=== PATIENT | male | born 1945 | race Caucasian/White ===

== ENCOUNTER → 2017-01-15 | Outpatient (CLI) | payer MEDICARE, BC ==
[2017-01-15 08:10] LABS: HEMATOCRIT 38.1 % (37.9-51.0); HEMOGLOBIN 12.4 g/dL (13.5-17.0); HGB HCT DIFFERENCE -0.9; MEAN CORPUSCULAR HEMOGLOBIN 27.9 pg (27.0-33.4); MEAN CORPUSCULAR HGB CONC 32.6 g/dL (32.0-36.0); MEAN CORPUSCULAR VOLUME 85 fl (80-97); RED BLOOD COUNT 4.46 10^6/uL (4.35-5.55); RED CELL DISTRIBUTION WIDTH 14.1 % (11.5-14.0); WHITE BLOOD COUNT 7.8 10^3/uL (4.0-10.5)
[2017-01-15 08:21] LABS: APPEARANCE,URINE CLEAR; BILIRUBIN,URINE NEGATIVE (NEGATIVE); GLUCOSE, URINE NEGATIVE (NEGATIVE); KETONES,URINE NEGATIVE (NEGATIVE); LEUKOCYTE ESTERASE,URINE NEGATIVE (NEGATIVE); NITRITE,URINE NEGATIVE (NEGATIVE); PROTEIN,URINE 100 mg/dL (NEGATIVE); URINE SPECIFIC GRAVITY 1.009; UROBILINOGEN,URINE NEGATIVE mg/dL (<2.0)
[2017-01-15 08:35] LABS: ANION GAP 11 (5-19); BLOOD UREA NITROGEN 20 mg/dL (7-20); CALCIUM 9.1 mg/dL (8.4-10.2); CARBON DIOXIDE 30 mmol/L (22-30); CHLORIDE 102 mmol/L (98-107); CREATININE RESULT 1.54 mg/dL (0.52-1.25); GLUCOSE 114 mg/dL (75-110); MAGNESIUM 1.8 mg/dL (1.6-2.3); SODIUM 143.2 mmol/L (137-145)
[2017-01-15 09:08] LABS: URINE CREATININE 92.1 mg/dL (22-328); URINE PROTEIN 115.9 mg/dL (<12)
== END ==
LOC: OD 07:08
PROVIDERS: ATTEND Internal Medicine Nephrology
DX: I12.9 Hypertensive chronic kidney disease with stage 1 through stage 4 chronic kidney disease, or unspecified chronic kidney disease (principal); N18.3 Chronic kidney disease, stage 3 (moderate); E11.9 Type 2 diabetes mellitus without complications; R80.9 Proteinuria, unspecified; D64.9 Anemia, unspecified
CPT/HCPCS: 36415; 80048; 81001; 82570; 83735; 84156; 85027

== ENCOUNTER → 2017-07-26 | Outpatient (CLI) | payer MEDICARE, BC ==
[2017-07-26 12:53] LABS: HEMATOCRIT 35.2 % (37.9-51.0); HEMOGLOBIN 11.9 g/dL (13.5-17.0); MEAN CORPUSCULAR HEMOGLOBIN 28.1 pg (27.0-33.4); MEAN CORPUSCULAR HGB CONC 33.8 g/dL (32.0-36.0); MEAN CORPUSCULAR VOLUME 83 fl (80-97); PLATELET COUNT 294 10^3/uL (150-450); RED BLOOD COUNT 4.23 10^6/uL (4.35-5.55); RED CELL DISTRIBUTION WIDTH 13.8 % (11.5-14.0); WHITE BLOOD COUNT 7.6 10^3/uL (4.0-10.5)
[2017-07-26 13:00] LABS: APPEARANCE,URINE CLEAR; BILIRUBIN,URINE NEGATIVE (NEGATIVE); COLOR,URINE YELLOW; GLUCOSE, URINE NEGATIVE (NEGATIVE); KETONES,URINE NEGATIVE (NEGATIVE); LEUKOCYTE ESTERASE,URINE NEGATIVE (NEGATIVE); NITRITE,URINE NEGATIVE (NEGATIVE); PROTEIN,URINE 100 mg/dL (NEGATIVE); URINE SPECIFIC GRAVITY 1.018; UROBILINOGEN,URINE NEGATIVE mg/dL (<2.0)
[2017-07-26 13:17] LABS: ANION GAP 13 (5-19); BLOOD UREA NITROGEN 16 mg/dL (7-20); CALCIUM 9.2 mg/dL (8.4-10.2); CARBON DIOXIDE 27 mmol/L (22-30); CHLORIDE 104 mmol/L (98-107); GLUCOSE 132 mg/dL (75-110); POTASSIUM 3.7 mmol/L (3.6-5.0); SODIUM 144.1 mmol/L (137-145)
[2017-07-26 13:25] LABS: URINE CREATININE 197.8 mg/dL (22-328)
[2017-07-26 13:38] LABS: UR PRO/CREAT RATIO RESULT 1.6 mg/mg (0.0-0.2); URINE PROTEIN 312.4 mg/dL (<12)
== END ==
LOC: OD 11:33
PROVIDERS: ATTEND Internal Medicine Nephrology
DX: I12.9 Hypertensive chronic kidney disease with stage 1 through stage 4 chronic kidney disease, or unspecified chronic kidney disease (principal); N18.3 Chronic kidney disease, stage 3 (moderate); E11.9 Type 2 diabetes mellitus without complications; R80.9 Proteinuria, unspecified
CPT/HCPCS: 36415; 80048; 81001; 82570; 84156; 85027

== ENCOUNTER → 2017-12-14 | Outpatient (CLI) | payer MEDICARE, BC ==
[2017-12-14 09:02] LABS: HEMATOCRIT 36.1 % (37.9-51.0); HEMOGLOBIN 12.3 g/dL (13.5-17.0); MEAN CORPUSCULAR HEMOGLOBIN 28.5 pg (27.0-33.4); MEAN CORPUSCULAR VOLUME 84 fl (80-97); PLATELET COUNT 288 10^3/uL (150-450); RED BLOOD COUNT 4.31 10^6/uL (4.35-5.55); RED CELL DISTRIBUTION WIDTH 14.4 % (11.5-14.0); WHITE BLOOD COUNT 8.9 10^3/uL (4.0-10.5)
[2017-12-14 09:16] LABS: ANION GAP 11 (5-19); BLOOD UREA NITROGEN 22 mg/dL (7-20); CALCIUM 9.4 mg/dL (8.4-10.2); CARBON DIOXIDE 30 mmol/L (22-30); CHLORIDE 103 mmol/L (98-107); GLUCOSE 217 mg/dL (75-110); SODIUM 144.1 mmol/L (137-145)
[2017-12-14 09:27] LABS: APPEARANCE,URINE CLEAR; BILIRUBIN,URINE NEGATIVE (NEGATIVE); COLOR,URINE YELLOW; GLUCOSE, URINE 150 mg/dL (NEGATIVE); KETONES,URINE NEGATIVE (NEGATIVE); LEUKOCYTE ESTERASE,URINE NEGATIVE (NEGATIVE); NITRITE,URINE NEGATIVE (NEGATIVE); PROTEIN,URINE 30 mg/dL (NEGATIVE); URINE SPECIFIC GRAVITY 1.011; UROBILINOGEN,URINE NEGATIVE mg/dL (<2.0)
[2017-12-14 09:58] LABS: UR PRO/CREAT RATIO RESULT 0.8 mg/mg (0.0-0.2); URINE CREATININE 59.6 mg/dL (22-328)
== END ==
LOC: OD 07:46
PROVIDERS: ATTEND Internal Medicine Nephrology
DX: I12.9 Hypertensive chronic kidney disease with stage 1 through stage 4 chronic kidney disease, or unspecified chronic kidney disease (principal); N18.3 Chronic kidney disease, stage 3 (moderate); E11.9 Type 2 diabetes mellitus without complications; R80.9 Proteinuria, unspecified
CPT/HCPCS: 36415; 80048; 81001; 82570; 84156; 85027

== ENCOUNTER → 2018-04-22 | Outpatient (CLI) | payer MEDICARE, BC ==
[2018-04-22 07:38] LABS: HEMATOCRIT 39.9 % (37.9-51.0); HEMOGLOBIN 13.6 g/dL (13.5-17.0); MEAN CORPUSCULAR HEMOGLOBIN 27.9 pg (27.0-33.4); MEAN CORPUSCULAR VOLUME 82 fl (80-97); PLATELET COUNT 350 10^3/uL (150-450); RED BLOOD COUNT 4.86 10^6/uL (4.35-5.55); WHITE BLOOD COUNT 7.1 10^3/uL (4.0-10.5)
[2018-04-22 07:40] LABS: APPEARANCE,URINE CLEAR; BILIRUBIN,URINE NEGATIVE (NEGATIVE); COLOR,URINE YELLOW; GLUCOSE, URINE NEGATIVE (NEGATIVE); KETONES,URINE NEGATIVE (NEGATIVE); LEUKOCYTE ESTERASE,URINE NEGATIVE (NEGATIVE); NITRITE,URINE NEGATIVE (NEGATIVE); PROTEIN,URINE >=500 mg/dL (NEGATIVE); URINE SPECIFIC GRAVITY 1.022; UROBILINOGEN,URINE NEGATIVE mg/dL (<2.0)
[2018-04-22 07:56] LABS: ANION GAP 10 (5-19); BLOOD UREA NITROGEN 18 mg/dL (7-20); CALCIUM 9.6 mg/dL (8.4-10.2); CARBON DIOXIDE 30 mmol/L (22-30); CHLORIDE 103 mmol/L (98-107); GLUCOSE 130 mg/dL (75-110); PHOSPHORUS 3.7 mg/dL (2.5-4.5); POTASSIUM 4.7 mmol/L (3.6-5.0)
== END ==
LOC: OD 07:06
PROVIDERS: ATTEND Physician Assistant Medical
DX: I12.9 Hypertensive chronic kidney disease with stage 1 through stage 4 chronic kidney disease, or unspecified chronic kidney disease (principal); E11.22 Type 2 diabetes mellitus with diabetic chronic kidney disease; N18.3 Chronic kidney disease, stage 3 (moderate); R80.9 Proteinuria, unspecified; D64.9 Anemia, unspecified; R60.9 Edema, unspecified
CPT/HCPCS: 36415; 80048; 81001; 83970; 84100; 85027

== ENCOUNTER → 2018-10-21 | Outpatient (CLI) | payer MEDICARE, BC ==
[2018-10-21 07:50] LABS: HEMATOCRIT 39.7 % (37.9-51.0); HEMOGLOBIN 13.6 g/dL (13.5-17.0); MEAN CORPUSCULAR HEMOGLOBIN 28.5 pg (27.0-33.4); MEAN CORPUSCULAR HGB CONC 34.3 g/dL (32.0-36.0); MEAN CORPUSCULAR VOLUME 83 fl (80-97); PLATELET COUNT 294 10^3/uL (150-450); RED BLOOD COUNT 4.78 10^6/uL (4.35-5.55); RED CELL DISTRIBUTION WIDTH 14.4 % (11.5-14.0); WHITE BLOOD COUNT 6.8 10^3/uL (4.0-10.5)
[2018-10-21 08:05] LABS: APPEARANCE,URINE CLEAR; BILIRUBIN,URINE NEGATIVE (NEGATIVE); COLOR,URINE YELLOW; GLUCOSE, URINE NEGATIVE (NEGATIVE); KETONES,URINE NEGATIVE (NEGATIVE); LEUKOCYTE ESTERASE,URINE NEGATIVE (NEGATIVE); NITRITE,URINE NEGATIVE (NEGATIVE); PROTEIN,URINE 100 mg/dL (NEGATIVE); URINE SPECIFIC GRAVITY 1.023
[2018-10-21 08:12] LABS: ANION GAP 10 (5-19); BLOOD UREA NITROGEN 26 mg/dL (7-20); CALCIUM 8.7 mg/dL (8.4-10.2); CARBON DIOXIDE 27 mmol/L (22-30); CHLORIDE 104 mmol/L (98-107); GLUCOSE 166 mg/dL (75-110); PHOSPHORUS 3.8 mg/dL (2.5-4.5); SODIUM 141.2 mmol/L (137-145)
== END ==
LOC: OD 07:04
PROVIDERS: ATTEND Physician Assistant Medical
DX: N18.3 Chronic kidney disease, stage 3 (moderate) (principal); I12.9 Hypertensive chronic kidney disease with stage 1 through stage 4 chronic kidney disease, or unspecified chronic kidney disease; E11.9 Type 2 diabetes mellitus without complications; R60.9 Edema, unspecified
CPT/HCPCS: 36415; 80048; 81001; 83970; 84100; 85027

== ENCOUNTER → 2019-02-03 | Outpatient (CLI) | payer MEDICARE, BC ==
[2019-02-03 10:23] LABS: HEMOGLOBIN 11.3 g/dL (13.5-17.0); MEAN CORPUSCULAR HEMOGLOBIN 27.6 pg (27.0-33.4); MEAN CORPUSCULAR HGB CONC 33.2 g/dL (32.0-36.0); MEAN CORPUSCULAR VOLUME 83 fl (80-97); PLATELET COUNT 380 10^3/uL (150-450)
[2019-02-03 10:51] LABS: ANION GAP 8 (5-19); BLOOD UREA NITROGEN 32 mg/dL (7-20); CALCIUM 9.3 mg/dL (8.4-10.2); CARBON DIOXIDE 28 mmol/L (22-30); CHLORIDE 105 mmol/L (98-107); GLUCOSE 108 mg/dL (75-110); PHOSPHORUS 4.9 mg/dL (2.5-4.5); POTASSIUM 4.3 mmol/L (3.6-5.0); SODIUM 141.3 mmol/L (137-145)
[2019-02-03 11:15] LABS: APPEARANCE,URINE CLEAR; BILIRUBIN,URINE NEGATIVE (NEGATIVE); COLOR,URINE YELLOW; GLUCOSE, URINE NEGATIVE (NEGATIVE); KETONES,URINE NEGATIVE (NEGATIVE); LEUKOCYTE ESTERASE,URINE NEGATIVE (NEGATIVE); NITRITE,URINE NEGATIVE (NEGATIVE); PROTEIN,URINE 30 mg/dL (NEGATIVE); URINE SPECIFIC GRAVITY 1.012; UROBILINOGEN,URINE NEGATIVE mg/dL (<2.0)
[2019-02-03 11:30] LABS: UR PRO/CREAT RATIO RESULT 0.4 mg/mg (0.0-0.2); URINE CREATININE 99.3 mg/dL (22-328); URINE PROTEIN 39.1 mg/dL (<12)
== END ==
LOC: OD 09:54
PROVIDERS: ATTEND Physician Assistant Medical
DX: E11.22 Type 2 diabetes mellitus with diabetic chronic kidney disease (principal); I12.9 Hypertensive chronic kidney disease with stage 1 through stage 4 chronic kidney disease, or unspecified chronic kidney disease; N18.3 Chronic kidney disease, stage 3 (moderate); N25.0 Renal osteodystrophy; R60.9 Edema, unspecified
CPT/HCPCS: 36415; 80048; 81001; 82570; 83970; 84100; 84156; 85027

== ENCOUNTER → 2019-07-31 | Outpatient (CLI) | payer MEDICARE, BC ==
[2019-07-31 11:12] LABS: ABSOLUTE EOSINOPHILS # (AUTO) 0.1 10^3/uL (0.0-0.6); ABSOLUTE LYMPHOCYTES (AUTO) 2.3 10^3/uL (0.5-4.7); ABSOLUTE MONOCYTES (AUTO) 0.8 10^3/uL (0.1-1.4); ABSOLUTE NEUT (AUTO) 5.5 10^3/uL (1.7-8.2); BASOPHILS % (AUTO) 0.4 % (0-2); EOSINOPHILS % (AUTO) 1.7 % (0-6); HEMATOCRIT 38.8 % (37.9-51.0); MEAN CORPUSCULAR HEMOGLOBIN 27.7 pg (27.0-33.4); MEAN CORPUSCULAR HGB CONC 33.4 g/dL (32.0-36.0); MEAN CORPUSCULAR VOLUME 83 fl (80-97); MONOCYTES % (AUTO) 9.4 % (3-13); PLATELET COUNT 294 10^3/uL (150-450); RED BLOOD COUNT 4.69 10^6/uL (4.35-5.55); RED CELL DISTRIBUTION WIDTH 15.1 % (11.5-14.0); SEGMENTED NEUTROPHILS % (AUTO) 62.5 % (42-78); TOTAL CELLS COUNTED % (AUTO) 100 %; WHITE BLOOD COUNT 8.8 10^3/uL (4.0-10.5)
[2019-07-31 11:29] LABS: APPEARANCE,URINE CLEAR; BILIRUBIN,URINE NEGATIVE (NEGATIVE); COLOR,URINE YELLOW; GLUCOSE, URINE NEGATIVE (NEGATIVE); KETONES,URINE NEGATIVE (NEGATIVE); LEUKOCYTE ESTERASE,URINE NEGATIVE (NEGATIVE); NITRITE,URINE NEGATIVE (NEGATIVE); PROTEIN,URINE 30 mg/dL (NEGATIVE); UROBILINOGEN,URINE NEGATIVE mg/dL (<2.0)
[2019-07-31 11:35] LABS: ANION GAP 8 (5-19); BLOOD UREA NITROGEN 26 mg/dL (7-20); CARBON DIOXIDE 30 mmol/L (22-30); CHLORIDE 102 mmol/L (98-107); GLUCOSE 198 mg/dL (75-110); PHOSPHORUS 3.6 mg/dL (2.5-4.5); POTASSIUM 4.8 mmol/L (3.6-5.0)
[2019-07-31 11:45] LABS: UR PRO/CREAT RATIO RESULT 0.3 mg/mg (0.0-0.2); URINE CREATININE 112.7 mg/dL (22-328); URINE PROTEIN 38.8 mg/dL (<12)
== END ==
LOC: OD 10:36
PROVIDERS: ATTEND Physician Assistant Medical
DX: I12.9 Hypertensive chronic kidney disease with stage 1 through stage 4 chronic kidney disease, or unspecified chronic kidney disease (principal); N18.3 Chronic kidney disease, stage 3 (moderate); E11.22 Type 2 diabetes mellitus with diabetic chronic kidney disease; N25.0 Renal osteodystrophy; D63.1 Anemia in chronic kidney disease; R60.9 Edema, unspecified
CPT/HCPCS: 36415; 80048; 81001; 82570; 83970; 84100; 84156; 85025

== ENCOUNTER 2020-03-19 05:47 | Day surgery (SDC) | payer OTHER, MEDICARE, BC ==
[2020-03-15 09:36] LABS: HEMATOCRIT 37.7 % (37.9-51.0); HEMOGLOBIN 12.8 g/dL (13.5-17.0); MEAN CORPUSCULAR VOLUME 86 fl (80-97); PLATELET COUNT 330 10^3/uL (150-450); RED BLOOD COUNT 4.41 10^6/uL (4.35-5.55); RED CELL DISTRIBUTION WIDTH 14.2 % (11.5-14.0)
[2020-03-15 09:39] LABS: APPEARANCE,URINE CLEAR; BILIRUBIN,URINE NEGATIVE (NEGATIVE); COLOR,URINE YELLOW; GLUCOSE, URINE 50 mg/dL (NEGATIVE); KETONES,URINE NEGATIVE (NEGATIVE); LEUKOCYTE ESTERASE,URINE NEGATIVE (NEGATIVE); NITRITE,URINE NEGATIVE (NEGATIVE); PROTEIN,URINE 100 mg/dL (NEGATIVE); URINE SPECIFIC GRAVITY 1.015; UROBILINOGEN,URINE NEGATIVE mg/dL (<2.0)
[2020-03-15 10:02] LABS: ANION GAP 11 (5-19); BLOOD UREA NITROGEN 45 mg/dL (7-20); CALCIUM 8.6 mg/dL (8.4-10.2); CARBON DIOXIDE 24 mmol/L (22-30); CHLORIDE 107 mmol/L (98-107); GLUCOSE 184 mg/dL (75-110); POTASSIUM 4.8 mmol/L (3.6-5.0)
[2020-03-15 10:10] LABS: ADD MANUAL MICROSCOPIC YES; RBC,URINE NONE SEEN /HPF; WBC,URINE NONE SEEN /HPF
--- NOTE | 2020-03-15 11:11 | RADIOLOGY REPORT (SQ) ---
EXAM DESCRIPTION: CHEST PA/LATERAL IMAGES COMPLETED DATE/TIME: 03/15/2020 9:08 am REASON FOR STUDY: PRE-OP COMPARISON: PA and lateral views of the chest from 02/08/2014. EXAM PARAMETERS: NUMBER OF VIEWS: Two views. TECHNIQUE: PA and lateral views of the chest were obtained. RADIATION DOSE: NA. LIMITATIONS: None. FINDINGS: LUNGS AND PLEURA: No consolidation, pleural effusion or pneumothorax. MEDIASTINUM AND HILAR STRUCTURES: No mediastinal or hilar contour abnormality. HEART AND VASCULAR STRUCTURES: The cardiac silhouette is mildly enlarged. The pulmonary vasculature is within normal limits. BONES: Findings of DISH in the thoracic spine. HARDWARE: None in the chest. OTHER: No other finding. IMPRESSION: Mild cardiomegaly without a superimposed acute cardiopulmonary process. TECHNICAL DOCUMENTATION: JOB ID: [id number] 2010 [employer]- All Rights Reserved Reading location - IP/workstation name: [email or web address]
--- NOTE | 2020-03-15 11:19 | EKG REPORT ---
SEVERITY:- ABNORMAL ECG - SINUS RHYTHM NONSPECIFIC T ABNORMALITIES, INFERIOR LEADS : Confirmed by: Lakia Morgan MD 15-Mar-2020 11:19:13
[~2020-03-19 05:47] MED LIST: CEFAZOLIN 2 GM/D5W RTU 2 GM/50 ML RTUPB IV ONE; CEFAZOLIN 2 GM/D5W RTU 2 GM/50 ML RTUPB IV PRN; LACTATED RINGERS 1000 ML IV PRN; LIDOCAINE 0.5% INJ-PF (5 MG/ML) 50 ML SDV SUBCUT PRN
[2020-03-19] MEDS ORDERED: MIDAZOLAM 2 MG/2 ML INJ ONE (07:06)
[2020-03-19] MEDS ORDERED: ONDANSETRON HCL INJ/PF 4 MG/2 ML SDV ONE (07:06)
[2020-03-19] MEDS ORDERED: FENTANYL CITRATE INJ/PF 100 MCG/2 ML AMPUL ONE (07:06)
[2020-03-19] MEDS ORDERED: PROPOFOL INJ 200 MG/20 ML VIAL IV ONE (07:07)
[2020-03-19] MEDS ORDERED: BUPIVACAINE HCL 0.5 % INJ/PF 30 ML SDV ONE (07:36)
[2020-03-19] MEDS ORDERED: LIDOCAINE 1% INJ-PF (10 MG/ML) 30 ML SDV ONE (07:36)
[2020-03-19] MEDS ORDERED: DIPHENHYDRAMINE HCL 50 MG/ML VIAL IV PRN (08:15)
[2020-03-19] MEDS ORDERED: FENTANYL CITRATE INJ/PF 100 MCG/2 ML AMPUL IV PRN ×3 (08:15)
[2020-03-19] MEDS ORDERED: PROMETHAZINE HCL INJ 25 MG/1 ML VIAL IV PRN ×2 (08:15)
[2020-03-19] MEDS ORDERED: MEPERIDINE HCL/PF INJ 25 MG/1 ML DISP.SYRIN IV PRN (08:15)
[2020-03-19] MEDS ORDERED: HYDROCODONE/ACETAMINOPHEN 5-325 MG TABLET PO PRN (08:37)
[2020-03-19] MEDS ORDERED: ONDANSETRON HCL INJ/PF 4 MG/2 ML SDV IV PRN (08:37)
--- NOTE | 2020-03-19 08:37 | Discharge Summary ---
Discharge Summary (SDC) - Discharge Final Diagnosis: Right Carpal Tunnel Syndrome Date of Surgery: 03/19/20 Discharge Date: 03/19/20 Condition: Good Treatment or Instructions: Schedule Follow Up w/ Dr. Singh Brady @ [facility] to be seen in 10-14 days or as scheduled [place]: [place]: [place]: May remove dressing on postop day #3, keep incision covered and dry. Ice and elevate May begin finger range of motion attempting to make full fist. Stool softener of choice when on pain medication. USE OF [id number] IBUPROFEN: Ibuprofen (Advil, Nuprin, Medipren, Motrin IB) is a medication for fever and pain control. In addition, it has anti- inflammatory effects which may be beneficial, especially in the treatment of injuries. It's best to take ibuprofen with food. Persons with ulcer disease or allergy to aspirin should notify their physician of this before taking ibuprofen. Ibuprofen can be given every four to six hours, for a total of four doses daily. Age Pain or fever dose Antiinflammatory dose 6-8 yr 200 mg (1 tab) 200 mg (1 tab) 9-11 yr 200 mg (1 tab) 200-400 mg (1-2 tab) 11-14 yr 200-400 mg (1-2 tab) 400 mg (2 tab) 15-adult 400 mg (2 tab) 600 mg (3 tab) ORAL NARCOTIC MEDICATION: You have been given a prescription for pain control. This medication is a narcotic. It's best taken with food, as nausea can result if taken on an empty stomach. Don't operate machinery or drive within six hours of taking this medication. Do not combine this medicine with alcohol, or with any medication which can cause sedation (such as cold tablets or sleeping pills) unless you get permission from the physician. Narcotics tend to cause constipation. If possible, drink plenty of fluids and eat a diet high in fiber and fruits. Please be aware that prescription narcotics also have the potential for abuse. People become addicted to these medications because of the general sense of wellbeing that they induce. This feeling along with a significant reduction in tension, anxiety, and aggression provides a stimulating seductive quality to these drugs. Once your pain is under control, we encourage you to discard your unused narcotics. Prescriptions: Hydrocodone/Acetaminophen [[place] 5-325 mg Tablet] 1 tab PO Q6 PRN #10 tablet PRN Reason: Referrals: AVANI BOURNE MD [Primary Care Provider] - Discharge Diet: As Tolerated Respiratory Treatments at Home: Deep Breathing/Coughing Discharge Activity: No Lifting Over 10 Pounds, No Lifting/Push/Pulling Report the Following to Your Physician Immediately: Fever over 101 Degrees, Unusual Bleeding, Redness, Swelling, Warmth, Increased Soreness
--- NOTE | 2020-03-19 08:37 | Operative Report ---
Operative Report DATE OF SURGERY: 03/19/20 PREOPERATIVE DIAGNOSIS: Right carpal tunnel syndrome POSTOPERATIVE DIAGNOSIS: Same OPERATION: Right endoscopic carpal tunnel release SURGEON: AIDAN GOMEZ ANESTHESIA: LMAC COMPLICATIONS: None ESTIMATED BLOOD LOSS: Minimal PROCEDURE: Indication for above procedure: 74-year-old male with numbness and tingling in the median nerve distribution. Patient electrodiagnostic testing consistent with carpal tunnel syndrome. Discussed treatment options including prognosis of patients nerve recovery given severity of his carpal tunnel. After discussing options decision was made to proceed with operative intervention. Procedure In Detail: Patient was seen and evaluated in the preoperative holding area. The RIGHT upper extremity was initialized and marked. Patient received Ancef IV for bacterial prophylaxis. Patient was taken back to the operative room where transferred operative table. Patient was then placed under MAC anesthesia. Once adequately anesthetized, a nonsterile tourniquet was placed on the upper extremity. A surgical team debriefing was performed ensuring all instrumentatio n was available, the surgical procedure was discussed with possible concerns reviewed. Skin was prepped with alcohol and 10cc of 1% lidocaine without epinephrine was injected locally and w/in carpal canal. The upper extremity was prepped with chlorhexidine and alcohol and draped in a sterile fashion. A timeout was done identifying correct patient, procedure and extremity everyone in attendance agree with this and verbalized no concerns.The extremity was then exsanguinated the tourniquet was inflated to 250 mmHg. A transverse skin incision was made just proximal to the wrist flexion crease ulnar to the palmaris longus. Blunt dissection was performed down to the palmaris longus tendon which was retracted radially. Deep to the palmaris longus tendon was the volar carpal ligament this was incised identifying the median nerve deep. With the use of a [place] elevator any soft tissue/synovium was freed from the undersurface of the transverse carpal ligament. The hook of hamate was identified ulnarly. The ConMed cannulas were then introduced beginning with #1 progressing to a #3 gently dilating the carpal canal. I then introduced the scope within the cannula and identified transverse carpal ligament ensuring the median nerve was not visualized within the cannula. I triangulated distally with a 25-gauge needle identifying the distal aspect of the transverse carpal ligament, to ensure protection of the superficial palmar arch. The arthroscopic knife was used to incise the transverse carpal ligament under direct visualization with the arthroscopic camera. Any excess transverse fibers that remained after the first past were carefully released with a repeat pass. The median nerve was then directly visualized radially without disruption. Once this was completed I placed the #3 dilator and assured I got complete release of the transverse carpal ligament without residual compression. The median nerve was directly visualized and free of any overlying compression. I then turned my attention to release of the volar antebrachial fascia proximally. Once again a [place] was used to open the wound and I proceeded with cannula #1 to #3. The arthroscope was introduced into the cannula and under direct visualization the volar antebrachial fascia was released. Once this was complete I copiusly irrigated the wound with normal saline. The skin incision was closed with 4-0 Monocryl subcutaneous and a running subcuticular 4-0 Monocryl. This was reinforced with Dermabond and Steri-Strips. Sterile, 4 x 4's and a [place] bandage was placed loosely. Sponge counts, instrument counts and needle counts were correct. The was no intraoperative complications patient tolerated the procedure well and was stable to PACU.
[2020-03-19 14:12] VITALS: BP 161/85
== END 2020-03-19 10:10 | disposition home or self-care (01) ==
LOC: OROUT 05:47
PROVIDERS: ATTEND Orthopaedic Surgery
DX: G56.01 Carpal tunnel syndrome, right upper limb (principal); D64.9 Anemia, unspecified; E78.5 Hyperlipidemia, unspecified; I10 Essential (primary) hypertension; E11.9 Type 2 diabetes mellitus without complications; Z79.899 Other long term (current) drug therapy; Z79.4 Long term (current) use of insulin; Z03.818 Encounter for observation for suspected exposure to other biological agents ruled out
CPT/HCPCS: 93005; 36415 ×2; 82962; 84132; 85027; 87635; 80048; 81001; 83036; 71046; 93010; 01810; 29848; J2250; J3010; J3490; J2405; J2704; J0690; C9803; 1810